=== PATIENT | female | born 1990 | race Caucasian/White ===

== ENCOUNTER 2023-07-08 22:32 | Inpatient (IN) ==
[2023-07-08] MEDS ORDERED: Lidocaine 1% VIAL 10 MG/ML 30 ML VIAL INJ PRN (23:05)
[2023-07-08 23:30] LABS: ABS Basophils 0.2 10^3/uL (0.0-0.1); ABS Eosinophils 0.1 10^3/uL (0.0-0.5); ABS Lymphocytes 1.9 10^3/uL (1.0-4.8); ABS Monocytes 0.9 10^3/uL (0.0-0.9); ABS Neutrophils 12.8 10^3/uL (1.5-7.6); ABS Nucleated RBC 0.01 10^3/ul; Eosinophil % 0.3 %; Hematocrit 38.1 % (35-45); Hemoglobin 13.2 g/dL (11.5-14.3); Lymphocyte % 11.9 %; Mean Corpuscular Hemoglobin 30.5 pg (27-33); Mean Corpuscular Hgb Conc 34.6 g/dL (31-36); Mean Corpuscular Volume 88.3 fL (80-97); Mean Platelet Volume 8.8 fL (7.5-11.2); Nucleated Red Blood Cells % 0.1 %/100WBC (0.0-0.8); Platelet Count 197 10^3/uL (150-450); Red Blood Count 4.32 10^6/uL (3.63-4.92); Red Cell Distribution Width 13.1 % (12-17); White Blood Count 15.9 10^3/uL (3.8-11.8)
[2023-07-09] MEDS: Oxytocin in LR 20,000 MILLI.UNIT/1,000 ML BAG IV SCH (10:31)
[2023-07-09] MEDS: Lactated Ringers 1000 ml BAG 1,000 ML IV SCH (13:32)
[2023-07-09] MEDS: Phenylephrine 40 mcg/mL 10mL (400mcg) SYRINGE IV PUSH PRN (14:26)
[2023-07-09] MEDS ORDERED: Sodium Citrate/Citric Acid LIQ 15 ML UDC PO PRN (14:29)
[2023-07-09] MEDS ORDERED: Phenylephrine 40 mcg/mL 10mL (400mcg) SYRINGE IV PUSH PRN (14:29)
[2023-07-09] MEDS: Buffered Lidocaine 1% SYRIN 1 ml INTRADERM ONE (14:29)
[2023-07-09] MEDS: OBEPIDURAL (200 ML) 200 ML EPIDURAL SCH (14:39)
[2023-07-09 15:22] LABS: Urine Appearance Clear; Urine Bilirubin Negative (Negative); Urine Blood Negative (Negative); Urine Color Light-Yellow; Urine Glucose Negative (Negative); Urine Ketones 3+ (Negative); Urine Nitrite Negative (Negative); Urine Protein Negative (Negative); Urine Specific Gravity 1.012 (1.002-1.030); Urine Urobilinogen Negative (Negative); Urine pH 7.5 (5.0-8.0)
[2023-07-09 15:43] LABS: Urine Benzodiazepine Screen None Detected (None Detect); Urine Cannabinoids Screen None Detected (None Detect); Urine Opiates Screen None Detected (None Detect)
[2023-07-09] MEDS: OBEPIDURAL (200 ML) 200 ML EPIDURAL ONE (17:57)
[2023-07-10] MEDS: Methylergonovine 0.2 mg AMPULE 1 ml AMP ONE (05:11)
[2023-07-10] MEDS ORDERED: Glycerin ADULT 2.4 gm SUPP PR PRN (05:38)
[2023-07-10] MEDS ORDERED: Lactated Ringers 1000 ml BAG 1,000 ML IV SCH (06:00)
[2023-07-10] MEDS: ceFAZolin 2 GM/50 ML BAG IV ONE (06:05)
[2023-07-10] MEDS: Methylergonovine 0.2 mg AMPULE 1 ml AMP IM ONE (06:47)
[2023-07-10] MEDS: Oxytocin in LR 20,000 MILLI.UNIT/1,000 ML BAG IV SCH (06:48)
[2023-07-10] MEDS: Dibucaine 1% OINT 28.35 GM TUBE PR PRN (07:06)
[2023-07-10] MEDS: Witch Hazel PAD JAR TOPICAL PRN (07:06)
[2023-07-10] MEDS: ceFAZolin 2 GM in NS PREMIX 2 GM/100 ML BAG IVPB ONE (07:45)
[2023-07-11 06:33] LABS: ABS Eosinophils 0.1 10^3/uL (0.0-0.5); ABS Lymphocytes 2.4 10^3/uL (1.0-4.8); ABS Monocytes 0.8 10^3/uL (0.0-0.9); ABS Neutrophils 8.8 10^3/uL (1.5-7.6); ABS Nucleated RBC 0.01 10^3/ul; Eosinophil % 1.2 %; Hematocrit 28.3 % (35-45); Hemoglobin 9.6 g/dL (11.5-14.3); Lymphocyte % 19.8 %; Mean Corpuscular Hemoglobin 30.9 pg (27-33); Mean Corpuscular Volume 90.9 fL (80-97); Mean Platelet Volume 8.6 fL (7.5-11.2); Platelet Count 168 10^3/uL (150-450); Red Blood Count 3.11 10^6/uL (3.63-4.92); Red Cell Distribution Width 13.4 % (12-17); White Blood Count 12.3 10^3/uL (3.8-11.8)
[2023-07-11] MEDS: Lactated Ringers 1000 ml BAG 1,000 ML IV ONE ×2 (08:54→08:55)
[2023-07-11] MEDS: Methylergonovine 0.2 mg AMPULE 1 ml AMP ONE (08:54)
[2023-07-11] MEDS: Lactated Ringers 1000 ml BAG 1,000 ML IV SCH (08:54)
[2023-07-11] MEDS: Lidocaine 1.5% EPI 1:200,000 30 ML SDV ONE (08:57)
[2023-07-12 09:15] VITALS: BP 117/75
== END 2023-07-12 16:43 | disposition home or self-care (01) | DRG 560 ==
LOC: MCHOBOUT 22:32 → MCHOB 22:46
PROVIDERS: ADMIT Obstetrics & Gynecology; ATTEND Obstetrics & Gynecology